=== PATIENT | female | born 1975 ===

== ENCOUNTER 2017-02-20 09:19 | Emergency (ER) | payer OTHER ==
[2017-02-20 09:53] VITALS: BP 105/68; PULSE 74; RESP 17; TEMP 97.7; O2SAT 97
--- NOTE | 2017-02-20 09:57 | C.PDOC ---
History Of Present Illness 41 y/o female presents to the ED complaining of body aches, sore throat, runny nose, productive cough with green mucus, and ear pain since yesterday. She dtates she feels chills but has not had fever. Patient denies chest pain, shortness of breath, abdominal pain, vomiting, diarrhea, or dysuria. and son are sick with the similar symptoms. PMD: [facility] Time Seen by Provider: 02/20/17 09:21 Chief Complaint (Nursing): Cough, Cold, Congestion History Per: Patient History/Exam Limitations: no limitations Onset/Duration Of Symptoms: Days (x2) Current Symptoms Are (Timing): Still Present Sick Contacts (Context): Family Member(s) Severity: Mild Past Medical History Reviewed: Historical Data, Nursing Documentation, Vital Signs Vital Signs: Last Vital Signs Temp 97.7 F 02/20/17 09:37 Pulse 74 02/20/17 09:37 Resp 17 02/20/17 09:37 BP 105/68 02/20/17 09:37 Pulse Ox 97 02/20/17 11:01 - Medical History PMH: Hypothyroidism Family History: States: No Known Family Hx - Social History Hx Alcohol Use: No Hx Substance Use: No - Immunization History Hx Tetanus Toxoid Vaccination: No Hx Influenza Vaccination: No Hx Pneumococcal Vaccination: No Review Of Systems Except As Marked, All Systems Reviewed And Found Negative. Constitutional: Positive for: Chills. Negative for: Fever ENT: Positive for: Ear Pain, Nose Congestion, Throat Pain Cardiovascular: Negative for: Chest Pain, Palpitations Respiratory: Positive for: Cough, Sputum (Green). Negative for: Shortness of Breath Gastrointestinal: Negative for: Vomiting, Abdominal Pain, Diarrhea Genitourinary: Negative for: Dysuria, Hematuria Physical Exam - Physical Exam Appears: Well, Non-toxic, No Acute Distress Skin: Normal Color, Warm, Dry, No Rash Ear(s): Bilateral: Normal Nose: Discharge (Rhinorrhea) Oral Mucosa: Moist Throat: Erythema (Mild pharyngeal erythema), No Exudate, No Drooling, Other ( Tonsils normal, no swelling or exudates) Lymphatic: No Adenopathy Cardiovascular: Rhythm Regular Respiratory: Normal Breath Sounds, No Rales, No Rhonchi, No Wheezing, Other ( Coughing intermittently) Neurological/Psych: Oriented x3 ED Course And Treatment O2 Sat by Pulse Oximetry: 97 (RA) Pulse Ox Interpretation: Normal Progress Note: Patient given PO Motrin. She was reassurred symptoms are likely viral and that treatment is supportive. Rxs for Naprosyn, Tessalon and chloraseptic spray given. Patient instructed to drink plenty of fluids, and follow up with PMD/clinic in 1-2 days. She understands she should return to ED if symptoms worsen. Reassessment Condition: Improved Disposition Counseled Patient/Family Regarding: Diagnosis, Need For Followup, Rx Given - Disposition Referrals: [facility] [Outside] Disposition: HOME/ ROUTINE Disposition Time: 10:00 Condition: STABLE Additional Instructions: SEGUIMIENTO CON TEJEDA MDICO / CLNICA EN 1-2 TALAMANTES USE MEDICAMENTOS SEGN LO INDICADO BEBER MUCHO LQUIDO REGRESE AL MADINA DE EMERGENCIA SI LOS SNTOMAS EMPEORAN Prescriptions: Benzonatate [Tessalon Perles] 100 mg PO BID PRN #15 sgl PRN Reason: Cough Naproxen 375 mg PO BID PRN #20 tablet PRN Reason: pain Phenol/Glycerin [Chloraseptic [place]] 1 spray MM Q6 PRN #1 spray PRN Reason: THROAT PAIN Instructions: Upper Respiratory Infection (ED), Viral Syndrome (ED) Forms: [employer] ([employer]) Print Language: SWEDISH - Clinical Impression Clinical Impression: Upper respiratory infection, Viral disease - Scribe Statement The provider has reviewed the documentation as recorded by the Scrib[address] All medical record entries made by the Scribe were at my direction and personally dictated by me. I have reviewed the chart and agree that the record accurately reflects my personal performance of the history, physical exam, medical decision making, and the department course for this patient. I have also personally directed, reviewed, and agree with the discharge instructions and disposition.
== END 2017-02-20 10:09 | disposition home or self-care (01) ==
LOC: C.ER 09:19
DX: J06.9 Acute upper respiratory infection, unspecified (principal); B34.9 Viral infection, unspecified